=== PATIENT | female | born 2000 | race African-American/Black ===

== ENCOUNTER 2021-07-25 08:12 | Emergency (ER) | payer BC, SELFPAY ==
--- NOTE | ~2021-07-25 | XR_ITS ---
EXAMINATION: XR chest 2V 07/25/2021 09:10 INDICATION: Shortness of breath PROCEDURE: 2 view chest COMPARISON: No prior studies for comparison. FINDINGS: The lungs are clear. The cardiomediastinal silhouette is within normal limits. There are no pleural effusions. There is no pneumothorax suspected. IMPRESSION: 1: NO ACUTE CARDIOPULMONARY DISEASE. Reviewed, dictated and finalized at location A.
[2021-07-25 08:20] VITALS: BP 135/95; PULSE 94; RESP 21; TEMP 36.4; O2SAT 98
--- NOTE | 2021-07-25 08:28 | ECG_ITS ---
Measurements Intervals [place] Rate: 87 P: 55 IN: 135 QRS: 55 QRSD: 73 T: 18 QT: 366 QTc: 442 Interpretive Statements SINUS RHYTHM NONSPECIFIC T-WAVE ABNORMALITY ABNORMAL ECG NO PREVIOUS ECG AVAILABLE FOR COMPARISON Electronically Signed On 07-25-2021 11:08:43 CDT by Mir Jimenez M.D.
[2021-07-25 08:31] VITALS: O2SAT 97
[2021-07-25 08:34] VITALS: PULSE 92
[2021-07-25 08:46] LABS: Basophils Absolute Auto 0.1 K/mm3 (0.0-0.1); Eosinophils Absolute Auto 0.8 K/mm3 (0-0.3); Eosinophils Percent Auto 7.9 % (0-4.4); Hematocrit 40.2 % (37.0-47.0); Hemoglobin 12.6 g/dL (12.0-15.0); Immature Granulocyte Absolute 0.06 K/mm3 (0.00-0.031); Immature Granulocyte Percent A 0.6 % (0-0.5); Lymphocytes Absolute Auto 1.62 K/mm3 (0.9-3.2); Mean Corpuscular HGB Conc 31.3 g/dl (32-36); Mean Corpuscular Hemoglobin 26.6 pg (26-34); Mean Corpuscular Volume 84.8 fl (80-100); Mean Platelet Volume 9.5 fl (7.4-10.4); Monocytes Absolute Auto 0.6 K/mm3 (0.1-0.6); Monocytes Percent Auto 5.9 % (2.6-8.5); Neutrophils Absolute Auto 6.4 K/mm3 (1.3-6.7); Neutrophils Percent Auto 67.6 % (45.5-73.1); Platelet Count Result 284 k/mm3 (150-375); Red Blood Count 4.74 M/mm3 (4.2-5.4); Red Cell Distribution Width 14.1 % (11.5-14.5); White Blood Count 9.5 K/mm3 (4.5-10.0)
[2021-07-25] MEDS: IPRATROPIUM BR 0.02% INH SOLN 0.5 MG/2.5 ML VIAL 1 MG INHALATION (08:50)
[2021-07-25] MEDS: ALBUTEROL SULFATE NEB 2.5 MG/3 ML INH 10 MG INHALATION (08:50)
[2021-07-25 08:57] LABS: INR 1.1; Prothrombin Time 13.4 Seconds (11.1-14.7)
[2021-07-25 08:58] LABS: Partial Thromboplastin Time 27.3 SECONDS (22.3-36.8)
[2021-07-25 08:59] LABS: Alanine Aminotransferase 32 U/L (6-35); Albumin Level 4.3 g/dL (3.5-5.1); Alkaline Phosphatase 92 U/L (38-126); Anion Gap 11 mmol/L (8-16); Aspartate Amino Transferase 29 U/L (14-36); Bilirubin,Total < 0.1 mg/dL (0.2-1.3); Blood Urea Nitrogen 15 mg/dL (7-17); Calcium 8.6 mg/dL (8.4-10.2); Carbon Dioxide 17 mmol/L (22-30); Chloride 110 mmol/L (98-107); Estimated CRCL calculation 134 ml/min; Estimated Glomerular Filt Rate > 60; Glucose 121 mg/dL (65-110); Sodium 138 mmol/L (137-145)
[2021-07-25 09:01] LABS: Alveolar/Arterial O2 Gradient 34.6 mmHg; Base Excess ABG -4.5 mEq/l (+/-2.0); Carboxyhemoglobin 0.5 % THb (0-2.0); Fractional Inspired Oxygen 21 %; HCO3 ABG 19.6 mEq/l (22.0-26.0); Methemoglobin ABG 0.3 %THb (0-1.5); Oxygen Content ABG 17.7 %vol (16.0-22.0); Oxygen Saturation ABG 95.1 % (95.0-100.0); PCO2 ABG 33.4 mmHg (35.0-45.0); PO2 ABG 75.1 mmHg (80.0-100.0); PO2 FiO2 Ratio Arterial Blood 3.58 %; Reduced Hemoglobin 5.2 %THb (0-5.0); Total Hemoglobin 13.4 g/dL (12.0-18.0); pH ABG 7.386 (7.350-7.450)
[2021-07-25 09:02] LABS: Device ROOM AIR; Modified Allen's Test Pass; Site Drawn RIGHT RADIAL
[2021-07-25] MEDS: predniSONE 20 MG TABLET 60 MG PO (09:04)
[2021-07-25] MEDS: [UNRECOGNIZED DRUG - REMARK] XX (09:05)
[2021-07-25 09:10] LABS: NT Pro B Type Natriuretic Pept 15 pg/mL (5-100); Troponin I < 0.012 ng/mL (0.000-0.034)
--- NOTE | 2021-07-25 09:14 | ED.SOB ---
HPI - SOB/Dyspnea General Chief Complaint: Shortness of Breath/Dyspnea Stated Complaint: SOB, Cough Time Seen by Provider: 07/25/21 08:21 Source: patient and RN notes reviewed Mode of arrival: ambulatory Limitations: no limitations History of Present Illness HPI Narrative: This is a 20 year old morbidly obese female who presents for evaluation of shortness of breath. She states she starting having wheezing and shortness of breath 10 days. She states she went to pharmacy and she was given unknown medication. She has been having cough productive with phlegm, but she denies hemoptysis or fever. Her symptoms have continue to get worsen. She denies increased leg swelling. She reports upper chest pain when she coughs. She reports history of asthma as a child. Related Data Allergies Allergy/AdvReac Type Severity Reaction Status Date / Time No Known Allergies Allergy Verified 07/25/21 08:33 Review of Systems Review of Systems: All systems reviewed & are unremarkable except as noted in HPI and below Constitutional: Constitutional: Denies chills, Denies fatigue and Denies fever(s) ENT: Denies dizziness and Denies nasal congestion Cardiovascular: Cardiovascular: Reports chest pain, Denies radiating jaw, neck or arm pain and Denies slow heart rate Respiratory: Respiratory: Reports cough, Reports dyspnea and Reports wheezing Gastrointestinal: Gastrointestinal: Denies abdominal pain, Denies bloating, Denies nausea and Denies vomiting PMFSH Past Medical History Medical History (Updated 07/25/21 @ 11:17 by Precious Forman MD) Asthma Surgical History Surgical History (Updated 07/25/21 @ 09:18 by Precious Forman MD) No pertinent past surgical history Social History Social History (Updated 07/25/21 @ 09:18 by Precious Forman MD) Smoking status: Current every day smoker Substance use type: marijuana Exam Const: General: alert; No diaphoretic Nutritional Appearance: obese Orientation/consciousness: patient oriented x3 HENMT: Head: normal to inspection Ears: TM's normal bilaterally Mouth: Yes Normal oral and palatal mucosa present Teeth and gingiva: dentition normal Throat: posterior oropharynx normal Eyes: EOM: EOMs intact bilaterally Chest: Chest palpation & inspection: normal inspection of the chest Resp: Effort & Inspection: no retractions and tachypneic Auscultation: wheezes expiratory wheezes, inspiratory wheezes and throughout Cardio: Rate: regular rate Rhythm: regular rhythm Heart sounds: no murmurs GI: GI Palp: Yes Soft to palpation, No Tenderness to palpation present (GI), No Guarding due to palpation present (GI) and No Rigid due to palpation Auscultation: normal bowel sounds Back/Spine/Pelvis: Back: no CVA tenderness Skin: General skin exam: normal color Rashes: no rashes Wounds: no wounds Neuro: General: patient oriented x3, moves all extremities and CN's II-XI intact bilaterally Cranial nerves: Yes Nystagmus not present Extrem: General: no pedal edema Psych: Affect: Anxious affect present Course Reevaluation(s) Reevaluation #1: PAient reassessment. Lungs are clear. She was able to ambulate. lowest pulse ox with walking was 94% on room air. I discussed discharge plan and diagnosis of bronchitis. PERC negative Date: 07/25/21 Time: 11:14 Vital Signs Vital signs: Vital Signs Temperature 97.6 F 07/25/21 08:20 Pulse Rate 94 07/25/21 08:20 Respiratory Rate 21 H 07/25/21 08:20 Blood Pressure 135/95 H 07/25/21 08:20 Pulse Oximetry 98 07/25/21 08:20 Oxygen Delivery Room Air 07/25/21 08:20 Temperature 97.6 F 07/25/21 08:20 Pulse Rate 89 07/25/21 11:42 Respiratory Rate 20 07/25/21 11:42 Blood Pressure 125/84 07/25/21 11:42 Pulse Oximetry 97 07/25/21 11:42 Oxygen Delivery Room Air 07/25/21 08:31 MDM - SOB/Dyspnea Differential Diagnosis Differential diagnosis: Likely congestive heart failure, co
[2021-07-25 10:11] VITALS: BP 125/83; PULSE 89; RESP 20; O2SAT 96
[2021-07-25 11:22] LABS: SARS-CoV-2 RNA PCR Negative
[2021-07-25 11:42] VITALS: BP 125/84; PULSE 89; RESP 20; O2SAT 97
== END 2021-07-25 11:35 | disposition home or self-care (01) ==
PROVIDERS: Emergency Provider General Practice
DX: J20.9 Acute bronchitis, unspecified (principal); Z20.822 Contact with and (suspected) exposure to COVID-19; J45.909 Unspecified asthma, uncomplicated; E66.01 Morbid (severe) obesity due to excess calories; Z68.44 Body mass index [BMI] 60.0-69.9, adult
CPT/HCPCS: 36415; 36600; 71046; 80053; 82375; 82805; 83050; 83880; 84484; 85025; 85610; 85730; 87081; 87880; 93005; 99284; C9803; J7512; U0003; U0005